=== PATIENT | female | born 1995 | race Caucasian/White ===

== ENCOUNTER 2024-04-27 21:12 | Inpatient (IN) ==
[2024-04-27] MEDS ORDERED: IOPAMIDOL 100 ML BOTTLE IV ONE (21:13)
[2024-04-27 22:06] LABS: Basophils # (Auto) 0.05 K/mcL (0.00-0.30); Basophils % (Auto) 0.2 % (0.0-2.0); Hematocrit 36.4 % (34.1-44.9); Hemoglobin 11.6 g/dL (11.2-15.7); Lymphocytes # (Auto) 2.52 K/mcL (1.50-4.80); Mean Cell Volume 84.8 fL (80.0-100.0); Mean Corpuscular HGB Conc 31.9 g/dL (31.0-36.0); Mean Platelet Volume 9.6 fL (8.8-12.5); Monocytes # (Auto) 1.59 K/mcL (0.10-0.90); Monocytes % (Auto) 7.6 % (1.0-12.0); Neutrophils % (Auto) 78.2 % (38.0-78.0); Platelet Count 493 K/mcL (140-440); RBC 4.29 M/mcL (3.59-5.38); Red Cell Distribution Width 13.6 % (11.5-14.5)
[2024-04-27] MEDS: CEFEPIME 2 GM VIAL IV ONE (22:11)
[2024-04-27] MEDS: LACTATED RINGERS 1,000 ML IV ONE (22:11)
[2024-04-27] MEDS: VANCOMYCIN 2,000 MG in 0.9 % SODIUM CHLORIDE 500 ML IV ONE (22:15)
[2024-04-27 22:21] LABS: Blood Urea Nitrogen 6 mg/dL (6-20); Calcium 9.1 mg/dL (8.6-10.4); Carbon Dioxide 25 mmol/L (22-30); Chloride 100 mmol/L (96-108); Glomerular Filtration Rate 143; Glucose 143 mg/dL (70-105)
[2024-04-27] MEDS: 0.9 % SODIUM CHLORIDE 500 ML ONE (22:24)
[2024-04-27 22:28] LABS: HCG,Serum Negative
[2024-04-27] MEDS: morphine 4 MG/ML VIAL IV ONE (22:29)
[2024-04-27] MEDS: ONDANSETRON 4 MG/2 ML VIAL IV ONE (22:32)
[2024-04-27 23:05] LABS: INR 1.1 (0.9-1.1); Prothrombin Time 14.7 sec (11.9-14.5)
[2024-04-27] MEDS ORDERED: morphine 2 MG/ML VIAL IV PRN (23:59)
[2024-04-28] MEDS: 0.9 % SODIUM CHLORIDE 1,000 ML IV SCH (01:23)
[2024-04-28] MEDS: LORazepam 2 MG/ML VIAL IV PRN (02:02)
[2024-04-28 02:03] LABS: Amphetamine Screen,Urine Suspect positive; Barbiturate Screen,Urine None detected; Benzodiazepines Screen,Urine None detected; Cannabinoid Screen,Urine Suspect Positive; Cocaine Screen,Urine None detected; Opiate Screen,Urine Suspect Positive; Oxycodone, Urine Screen None detected; Phencyclidine Screen,Urine None detected
[2024-04-28] MEDS: morphine 2 MG/ML VIAL IV PRN (02:58)
[2024-04-28] MEDS: ACETAMINOPHEN 325 MG TABLET PO PRN (07:35)
[2024-04-28] MEDS: VANCOMYCIN 1,250 MG in 0.9 % SODIUM CHLORIDE 500 ML IV SCH (08:53)
[2024-04-28] MEDS: VANCOMYCIN PER PHARMACY IV ONE (08:53)
[2024-04-28 11:23] LABS: Basophils # (Auto) 0.04 K/mcL (0.00-0.30); Basophils % (Auto) 0.2 % (0.0-2.0); Eosinophils # (Auto) 0.27 K/mcL (0.00-0.70); Eosinophils % (Auto) 1.2 % (0.0-7.0); Hemoglobin 12.1 g/dL (11.2-15.7); Lymphocytes # (Auto) 3.15 K/mcL (1.50-4.80); Mean Cell Volume 84.8 fL (80.0-100.0); Mean Corpuscular HGB Conc 31.8 g/dL (31.0-36.0); Mean Platelet Volume 9.1 fL (8.8-12.5); Monocytes # (Auto) 2.01 K/mcL (0.10-0.90); Neutrophils % (Auto) 74.2 % (38.0-78.0); Platelet Count 459 K/mcL (140-440); RBC 4.48 M/mcL (3.59-5.38); Red Cell Distribution Width 13.8 % (11.5-14.5); WBC 22.4 K/mcL (4.5-11.0)
[2024-04-28] MEDS: CEFEPIME 1 GM VIAL IV SCH (23:25)
[2024-04-29] MEDS ORDERED: ROCURONIUM 10 MG/ML ML IV ONE ×2 (09:34→10:37)
[2024-04-29] MEDS ORDERED: PROPOFOL 200 MG/20 ML VIAL IV ONE ×3 (09:34→10:36)
[2024-04-29] MEDS ORDERED: LIDOCAINE 2% PF 5 ML VIAL ONE ×2 (09:34→10:37)
[2024-04-29] MEDS ORDERED: ONDANSETRON 4 MG/2 ML VIAL ONE (09:35)
[2024-04-29] MEDS ORDERED: DEXAMETHASONE 10 MG/ML VIAL ONE (09:35)
[2024-04-29] MEDS ORDERED: VANCOMYCIN PER PHARMACY IV SCH (10:00)
[2024-04-29] MEDS ORDERED: MIDAZOLAM 2 MG/2 ML VIAL ONE (10:12)
[2024-04-29] MEDS ORDERED: fentaNYL 100 MCG/2 ML VIAL ONE ×2 (10:14→11:38)
[2024-04-29] MEDS ORDERED: SUCCINYLCHOLINE 200 MG/10 ML VIAL IV ONE (10:36)
[2024-04-29] MEDS ORDERED: GLYCOPYRROLATE 0.2 MG/ML VIAL IV ONE (10:38)
[2024-04-29] MEDS ORDERED: SUGAMMADEX SODIUM 200 MG/2 ML VIAL IV ONE (10:38)
[2024-04-29] MEDS: VANCOMYCIN 1,500 MG in 0.9 % SODIUM CHLORIDE 500 ML IV SCH (10:40)
[2024-04-29] MEDS ORDERED: IPRATROPIUM/ALBUTEROL 3 ML AMPUL.NEB NEB PRN (11:07)
[2024-04-29] MEDS ORDERED: ONDANSETRON 4 MG/2 ML VIAL IV PRN (11:07)
[2024-04-29] MEDS ORDERED: HYDROmorphone 0.5 MG/0.5 ML SYRINGE IV PRN (11:07)
[2024-04-29] MEDS ORDERED: diphenhydrAMINE 50 MG/ML VIAL ONE (11:36)
[2024-04-29] MEDS: fentaNYL 100 MCG/2 ML VIAL IV PRN (11:40)
[2024-04-29] MEDS: diphenhydrAMINE 50 MG/ML VIAL IV ONE (11:45)
[2024-04-29] MEDS: HYDROmorphone 1 MG/ML SYRINGE IV PRN (15:21)
[2024-04-30] MEDS: VANCOMYCIN 1,750 MG in 0.9 % SODIUM CHLORIDE 500 ML IV SCH (11:23)
[2024-04-30 13:35] LABS: Basophils # (Auto) 0.05 K/mcL (0.00-0.30); Basophils % (Auto) 0.4 % (0.0-2.0); Eosinophils # (Auto) 0.38 K/mcL (0.00-0.70); Hematocrit 34.9 % (34.1-44.9); Hemoglobin 10.9 g/dL (11.2-15.7); Lymphocytes # (Auto) 2.77 K/mcL (1.50-4.80); Lymphocytes % (Auto) 22.1 % (15.5-49.0); Mean Cell Volume 86.6 fL (80.0-100.0); Mean Corpuscular HGB Conc 31.2 g/dL (31.0-36.0); Mean Platelet Volume 9.2 fL (8.8-12.5); Monocytes # (Auto) 0.75 K/mcL (0.10-0.90); Neutrophils % (Auto) 62.3 % (38.0-78.0); Platelet Count 485 K/mcL (140-440); RBC 4.03 M/mcL (3.59-5.38); Red Cell Distribution Width 13.5 % (11.5-14.5); WBC 12.5 K/mcL (4.5-11.0)
[2024-05-01] MEDS: 0.9 % SODIUM CHLORIDE 10 ML SYRINGE IV SCH (05:36)
[2024-05-01 10:51] LABS: Basophils # (Auto) 0.02 K/mcL (0.00-0.30); Basophils % (Auto) 0.2 % (0.0-2.0); Eosinophils # (Auto) 0.37 K/mcL (0.00-0.70); Eosinophils % (Auto) 3.4 % (0.0-7.0); Hematocrit 34.4 % (34.1-44.9); Hemoglobin 10.7 g/dL (11.2-15.7); Lymphocytes # (Auto) 2.32 K/mcL (1.50-4.80); Lymphocytes % (Auto) 21.3 % (15.5-49.0); Mean Cell Volume 86.9 fL (80.0-100.0); Mean Corpuscular HGB Conc 31.1 g/dL (31.0-36.0); Mean Platelet Volume 9.1 fL (8.8-12.5); Monocytes % (Auto) 4.6 % (1.0-12.0); Neutrophils % (Auto) 65.4 % (38.0-78.0); Platelet Count 484 K/mcL (140-440); RBC 3.96 M/mcL (3.59-5.38); Red Cell Distribution Width 13.5 % (11.5-14.5); WBC 10.9 K/mcL (4.5-11.0)
[2024-05-01 11:15] LABS: ALT/SGPT 10 U/L (<40); AST/SGOT 24 U/L (<32); Albumin 3.2 gm/dL (3.2-5.2); Alkaline Phosphatase 65 U/L (39-117); Bilirubin,Direct < 0.2 mg/dL (0-0.3); Bilirubin,Total < 0.2 mg/dL (0.1-1.0); Blood Urea Nitrogen 6 mg/dL (6-20); Calcium 8.9 mg/dL (8.6-10.4); Carbon Dioxide 29 mmol/L (22-30); Chloride 100 mmol/L (96-108); Globulin 3.2 gm/dL (2.2-3.7); Glomerular Filtration Rate 143; Glucose 157 mg/dL (70-105); Lactate Dehydrogenase 190 U/L (135-225); Phosphorous 3.5 mg/dL (2.5-4.5); Triglycerides 102 mg/dL (<150); Uric Acid 2.9 mg/dL (2.5-8.0)
[2024-05-02 06:23] LABS: Basophils # (Auto) 0.05 K/mcL (0.00-0.30); Basophils % (Auto) 0.4 % (0.0-2.0); Eosinophils # (Auto) 0.26 K/mcL (0.00-0.70); Eosinophils % (Auto) 2.2 % (0.0-7.0); Hematocrit 33.7 % (34.1-44.9); Hemoglobin 10.4 g/dL (11.2-15.7); Lymphocytes # (Auto) 2.99 K/mcL (1.50-4.80); Lymphocytes % (Auto) 25.4 % (15.5-49.0); Mean Corpuscular HGB Conc 30.9 g/dL (31.0-36.0); Mean Platelet Volume 9.1 fL (8.8-12.5); Monocytes # (Auto) 0.75 K/mcL (0.10-0.90); Monocytes % (Auto) 6.4 % (1.0-12.0); Neutrophils % (Auto) 60.4 % (38.0-78.0); Platelet Count 468 K/mcL (140-440); RBC 3.83 M/mcL (3.59-5.38); Red Cell Distribution Width 13.7 % (11.5-14.5); WBC 11.8 K/mcL (4.5-11.0)
[2024-05-02] MEDS: ONDANSETRON 4 MG/2 ML VIAL IV PRN (08:49)
[2024-05-03 06:12] LABS: Amphetamine Screen Negative (Cutoff=500)
[2024-05-03 07:17] LABS: Basophils # (Auto) 0.04 K/mcL (0.00-0.30); Basophils % (Auto) 0.3 % (0.0-2.0); Eosinophils % (Auto) 1.7 % (0.0-7.0); Lymphocytes # (Auto) 2.74 K/mcL (1.50-4.80); Lymphocytes % (Auto) 23.4 % (15.5-49.0); Mean Cell Volume 89.4 fL (80.0-100.0); Mean Corpuscular HGB Conc 30.3 g/dL (31.0-36.0); Monocytes # (Auto) 0.53 K/mcL (0.10-0.90); Monocytes % (Auto) 4.5 % (1.0-12.0); Neutrophils % (Auto) 66.3 % (38.0-78.0); Platelet Count 418 K/mcL (140-440); RBC 3.69 M/mcL (3.59-5.38); Red Cell Distribution Width 13.9 % (11.5-14.5); WBC 11.7 K/mcL (4.5-11.0)
[2024-05-03 14:27] LABS: ALT/SGPT 20 U/L (<40); AST/SGOT 27 U/L (<32); Albumin 3.4 gm/dL (3.2-5.2); Albumin/Globulin Ratio 1.1 (1.0-2.3); Alkaline Phosphatase 55 U/L (39-117); Bilirubin,Total < 0.2 mg/dL (0.1-1.0); Blood Urea Nitrogen 11 mg/dL (6-20); Calcium 9.1 mg/dL (8.6-10.4); Carbon Dioxide 27 mmol/L (22-30); Chloride 101 mmol/L (96-108); Globulin 3.2 gm/dL (2.2-3.7); Glomerular Filtration Rate 132; Glucose 99 mg/dL (70-105)
[2024-05-04 10:08] LABS: Opiate Screen Positive ng/mL (Cutoff=300)
== END 2024-05-04 14:02 | disposition home or self-care (01) | DRG 570 ==
LOC: ED 21:12 → MEDSUR 21:12
PROVIDERS: ADMIT Family Medicine Adult Medicine; ATTEND Family Medicine Adult Medicine